=== PATIENT | female | born 1995 | race African-American/Black ===

== ENCOUNTER 2023-03-22 01:20 | Emergency (ER) | payer OTHER, SELFPAY ==
--- NOTE | 2023-03-22 03:19 | ER ---
Nurse's Notes [facility] Name: Елена Chandra Age: 27 yrs Sex: Female : 1995 Arrival Date: 03/22/2023 Time: 01:20 Bed 11 Private MD: Diagnosis: Acute tonsillitis, unspecified Presentation: 03/22 01:40 Chief complaint: Patient states: sore throat pain of 10 with white patches to pf1 throat,onset Saturday. 01:40 Coronavirus screen: Vaccine status: Patient reports being unvaccinated. Client denies pf1 travel out of the [place] in the last 14 days. Client presents with at least one sign or symptom that may indicate coronavirus-19. Ebola Screen: Patient negative for fever greater than or equal to 101.5 degrees Fahrenheit, and additional compatible Ebola Virus Disease symptoms. Initial Sepsis Screen: Does the patient meet any 2 criteria? No. Patient's initial sepsis screen is negative. Does the patient have a suspected source of infection? No. Patient's initial sepsis screen is negative. Risk Assessment: Do you want to hurt yourself or someone else? Patient reports no desire to harm self or others. 01:40 Method Of Arrival: Ambulatory pf1 01:40 Acuity: ABIMBOLA 4 pf1 Historical: - Allergies: 02:00 Motrin; pf1 - PMHx: 02:00 None; pf1 - PSHx: 02:00 section; pf1 - Immunization history:: Adult Immunizations up to date, Client reports having NOT received the Covid vaccine. Last tetanus immunization: < 5 years ago Flu vaccine is up to date. - Family history:: not pertinent. - Social history:: Smoking status: Patient denies any tobacco usage or history of. Patient uses alcohol, occasionally. street drugs, marijuana. - Hospitalizations: : No recent hospitalization is reported. Screenin:37 [facility] ED Fall Risk Assessment (Adult) History of falling in the last 3 months, pf1 including since admission No falls in past 3 months (0 pts) Confusion or Disorientation No (0 pts) Intoxicated or Sedated No (0 pts) Impaired Gait No (0 pts) Mobility Assist Device Used No (0 pt) Altered Elimination No (0 pt) Score/Fall Risk Level 0 - 2 = Low Risk Oriented to surroundings, Maintained a safe environment, Educated pt \T\ family on fall prevention, incl call for assistance when getting out of bed, Assessed \T\ reinforced patient's understanding of fall precautions, Provided non-skid footwear, Hourly rounding (assess needs \T\ fall precautionary measures) done, Used ambulatory aids as needed (educated on \T\ assisted with), Used gait belt as appropriate. Abuse screen: Denies threats or abuse. Nutritional screening: No deficits noted. Tuberculosis screening: No symptoms or risk factors identified. Assessment: 01:40 General: Appears in no apparent distress. comfortable, well groomed, well developed, pf1 Behavior is calm, cooperative, appropriate for age, quiet. 01:40 Pain: Complains of pain in throat Pain currently is 10 out of 10 on a pain scale. pf1 Neuro: No deficits noted. Level of Consciousness is awake, alert, obeys commands, Oriented to person, place, time, situation. Cardiovascular: No deficits noted. Capillary refill < 3 seconds Patient's skin is warm and dry. Respiratory: No deficits noted. Airway is patent Respiratory effort is even, unlabored, Respiratory pattern is regular, symmetrical, Breath sounds are clear bilaterally. GI: No deficits noted. No signs and/or symptoms were reported involving the gastrointestinal system. : No deficits noted. No signs and/or symptoms were reported regarding the genitourinary system. EENT: Throat is reddened has patchy exudate on right on left. Derm: No deficits noted. No signs and/or symptoms reported regarding the dermatologic system. 02:38 Reassessment: Patient appears in no apparent distress at this time. Patient and/or pf1 family updated on plan of care and expected duration. Pain level reassessed. Patient is alert, oriented x 3, equal unlabored respirations, skin warm/dry/pink. Vital Signs: 02:08 BP 139 / 76; Pulse 92; Resp 18; Temp 98.4; Pulse Ox 98% on R/A; Weight 89.36 kg; Height pf1 5 ft. 5 in. ; Pain 10/10; 03:00 BP 130 / 72; Pulse 90; Resp 16; Pulse Ox 100% on R/A; pf1 02:08 Body Mass Index 32.78 (89.36 kg, 165.1 cm) pf1 02:08 Pain Scale: Adult pf1 ED Course: 01:37 Patient arrived in ED. gm2 01:39 Esau Jacobson MD is Attending Physician. rn 01:40 Arm band placed on right wrist. pf1 01:40 Patient has correct armband on for positive identification. Placed in gown. Bed in low pf1 position. Call light in reach. 02:08 Flu Sent. pf1 02:08 Strep Sent. pf1 02:36 Triage completed. pf1 03:30 Patient did not have IV access during this emergency room visit. pf1 03:30 No provider procedures requiring assistance completed. pf1 03:30 Provided Education on: prescription. pf1 Administered Medications: 03:31 Drug: Amoxicillin-Clavulanate PO 875 mg PO once Route: PO; pf1 03:35 Follow up: Response: No adverse reaction pf1 Medication: 03:30 VIS not applicable for this client. pf1 Outcome: 03:18 Discharge ordered by MD. rn 03:30 Discharged to home ambulatory, pf1 03:30 Condition: improved 03:30 Discharge instructions given to patient, Instructed on discharge instructions, follow up and referral plans. Demonstrated understanding of instructions, follow-up care, medications, Prescriptions given X 1, 03:30 Patient left the ED. pf1 Signatures: Esau Jacobson MD MD rn Finley, Pamala, RN RN pf1 Ashleigh Aguirre gm2 Corrections: (The following items were deleted from the chart) 04:35 04:05 Patient left the ED. pf1 pf1
--- NOTE | 2023-03-22 03:19 | EDPHYS ---
Physician Documentation [facility] Name: Елена Chandra Age: 27 yrs Sex: Female : 1995 Arrival Date: 03/22/2023 Time: 01:20 Bed 11 Private MD: ED Physician Esau Jacobson HPI: 03/22 02:11 This 27 yrs old Black Female presents to ER via Unassigned with complaints of Sore rn Throat. 02:11 The patient presents with sore throat. The patient describes throat pain as raw. Onset: rn The symptoms/episode began/occurred yesterday. Severity of symptoms: At their worst the symptoms were moderate, in the emergency department the symptoms are unchanged. Modifying factors: The symptoms are alleviated by nothing, the symptoms are aggravated by swallowing. Associated signs and symptoms: Pertinent negatives cough, fever, rhinorrhea, shortness of breath. The patient has not experienced similar symptoms in the past. Patient reports 2 days of sore throat. No fever. Her baby just had RSV last week. Patient denies runny nose or cough. No myalgias.. Historical: - Allergies: 02:00 Motrin; pf1 - PMHx: 02:00 None; pf1 - PSHx: 02:00 section; pf1 - Immunization history:: Adult Immunizations up to date, Client reports having NOT received the Covid vaccine. Last tetanus immunization: < 5 years ago Flu vaccine is up to date. - Family history:: not pertinent. - Social history:: Smoking status: Patient denies any tobacco usage or history of. Patient uses alcohol, occasionally. street drugs, marijuana. - Hospitalizations: : No recent hospitalization is reported. ROS: 02:11 Constitutional: Negative for fever, chills, and weight loss, ENT: Positive for sore rn throat Cardiovascular: Negative for chest pain, palpitations, and edema, Respiratory: Negative for shortness of breath, cough, wheezing, and pleuritic chest pain, Abdomen/GI: Negative for abdominal pain, nausea, vomiting, diarrhea, and constipation, Neuro: Negative for headache, weakness, numbness, tingling, and seizure, Exam: 02:11 Constitutional: This is a well developed, well nourished patient who is awake, alert, rn and in no acute distress. Head/Face: Normocephalic, atraumatic. ENT: Bilateral tonsillar hypertrophy with exudate, uvula midline, no evidence of peritonsillar abscess Neck: Nontender cervical lymphadenopathy. No meningismus Cardiovascular: Regular rate and rhythm. No pulse deficits. Respiratory: No increased work of breathing, no retractions or nasal flaring. Vital Signs: 02:08 BP 139 / 76; Pulse 92; Resp 18; Temp 98.4; Pulse Ox 98% on R/A; Weight 89.36 kg; Height pf1 5 ft. 5 in. ; Pain 10/10; 03:00 BP 130 / 72; Pulse 90; Resp 16; Pulse Ox 100% on R/A; pf1 02:08 Body Mass Index 32.78 (89.36 kg, 165.1 cm) pf1 02:08 Pain Scale: Adult pf1 MDM: 01:39 Patient medically screened. rn 03:17 Differential diagnosis: group A strep tonsillitis, influenza, laryngitis, pharyngitis. rn Data reviewed: vital signs, nurses notes, lab test result(s), and as a result, I will discharge patient. Counseling: I had a detailed discussion with the patient and/or guardian regarding the historical points, exam findings, and any diagnostic results supporting the discharge/admit diagnosis, lab results, the need for outpatient follow up, to return to the emergency department if symptoms worsen or persist or if there are any questions or concerns that arise at home. Special discussion: I discussed with the patient/guardian in detail that at this point there is no indication for admission to the hospital. It is understood, however, that if the symptoms persist or worsen the patient needs to return immediately for re-evaluation. 03/22 01:50 Order name: Strep; Complete Time: 03:15 rn 03/22 01:50 Order name: Flu; Complete Time: 03:15 rn 03/22 03:06 Order name: Throat Culture EDMS Administered Medications: 03:31 Drug: Amoxicillin-Clavulanate PO 875 mg PO once Route: PO; pf1 03:35 Follow up: Response: No adverse reaction pf1 Disposition Summary: 03/22/23 03:18 Discharge Ordered Notes: Location: Home rn Problem: new rn Symptoms: have improved rn Condition: Stable rn Diagnosis - Acute tonsillitis, unspecified rn Followup: rn - With: Private Physician - When: As needed - Reason: Recheck today's complaints, Re-evaluation by your physician Discharge Instructions: - Discharge Summary Sheet rn - Tonsillitis rn Forms: - Medication Reconciliation Form rn - Thank You Letter 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
[2023-03-22] MEDS ORDERED: AMOX/K CLAV 875 MG TAB ONE (03:43)
[2023-03-22 04:22] VITALS: BP 139/76; TEMP 98.4; O2SAT 98
== END 2023-03-22 04:05 | disposition home or self-care (01) ==
LOC: ER 01:20
DX: J03.90 Acute tonsillitis, unspecified (principal)
CPT/HCPCS: 87070; 87081; 87804; 99283